=== PATIENT | male | born 1945 | race Two or more races ===

== ENCOUNTER 2017-04-03 14:24 | Emergency (ER) | payer OTHER ==
[~2017-04-03] VITALS: Ht 170.2 cm; Wt 59.9 kg
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
[2017-04-03] MEDS ORDERED: IBUPROFEN 400 MG TABLET ONE (14:39)
[2017-04-03] MEDS ORDERED: IBUPROFEN 400 MG TABLET PO ONE (15:00)
--- NOTE | 2017-04-03 15:17 | NUR ---
CALLED RT FOR BREATHING TREATMENT
[2017-04-03] MEDS ORDERED: IPRATROPIUM NEB FS 0.5 MG/2.5 ML AMPUL.NEB ONE (15:24)
[2017-04-03] MEDS ORDERED: ALBUTEROL FS 2.5 MG/3 ML VIAL.NEB ONE (15:24)
[2017-04-03] MEDS ORDERED: IPRATROPIUM NEB FS 0.5 MG/2.5 ML AMPUL.NEB NEB ONE (15:30)
[2017-04-03] MEDS ORDERED: ALBUTEROL FS 2.5 MG/3 ML VIAL.NEB NEB ONE (15:30)
[2017-04-03 15:56] VITALS: BP 150/90
== END 2017-04-03 15:57 | disposition home or self-care (01) ==
LOC: ER 14:26
DX: S16.1XXA Strain of muscle, fascia and tendon at neck level, initial encounter (principal); I10 Essential (primary) hypertension; J44.9 Chronic obstructive pulmonary disease, unspecified; F41.9 Anxiety disorder, unspecified; V89.2XXA Person injured in unspecified motor-vehicle accident, traffic, initial encounter; Y93.89 Activity, other specified; Y92.488 Other paved roadways as the place of occurrence of the external cause; Y99.8 Other external cause status
CPT/HCPCS: 72125; 94640; 99284; A4606; Z7610